=== PATIENT | male | born 1955 | race Caucasian/White ===

== ENCOUNTER 2018-10-08 10:44 | Emergency (ER) | payer OTHER ==
[~2018-10-08] VITALS: Ht 172.7 cm; Wt 95.3 kg
[2018-10-08] MEDS ORDERED: LISINOPRIL10 MG PO (10:57)
[2018-10-08] MEDS ORDERED: LIDODERM1 EACH TOP (10:58)
[2018-10-08] MEDS ORDERED: FLEXERIL PO (10:58)
[2018-10-08] MEDS ORDERED: IRON325 PO (10:58)
[2018-10-08] MEDS ORDERED: PROTONIX 20 MG20 M1 PO (10:58)
[2018-10-08] MEDS ORDERED: PERCOCET PO (12:13)
[2018-10-08] MEDS ORDERED: NAPROSYN500 MG PO (12:16)
[2018-10-08] MEDS ORDERED: VALIUM5 MG PO (12:16)
[2018-10-08] MEDS ORDERED: PERCOCET 5-3251 EACH PO (12:50)
[2018-10-08] MEDS ORDERED: OXYCODONE HCL 55 MG PO (12:53)
[2018-10-08 12:57] VITALS: BP 129/74
== END 2018-10-08 12:57 | disposition home or self-care (01) ==
LOC: M.ERS 10:44
DX: S22.42XA Multiple fractures of ribs, left side, initial encounter for closed fracture (principal); F17.200 Nicotine dependence, unspecified, uncomplicated; I10 Essential (primary) hypertension; K21.9 Gastro-esophageal reflux disease without esophagitis; M51.36 Other intervertebral disc degeneration, lumbar region; Z90.49 Acquired absence of other specified parts of digestive tract; Z90.89 Acquired absence of other organs; W00.0XXA Fall on same level due to ice and snow, initial encounter; Y92.89 Other specified places as the place of occurrence of the external cause; Y93.89 Activity, other specified; Y99.8 Other external cause status

== ENCOUNTER 2019-04-05 16:37 | Inpatient (IN) | payer OTHER ==
[2019-04-05] VITALS (7 sets, daily range): BP systolic 84–128; BP diastolic 47–68
[~2019-04-05] VITALS: Ht 172.7 cm; Wt 102.5 kg
[~2019-04-05 16:37] MED LIST: FLEXERIL PO; IRON325 PO; LIDODERM1 EACH TOP; LISINOPRIL10 MG PO; NAPROSYN500 MG PO; OXYCODONE HCL 55 MG PO; PERCOCET 5-3251 EACH PO; PERCOCET PO; PROTONIX 20 MG20 M1 PO; VALIUM5 MG PO
[2019-04-05 17:02] LABS: ABSOLUTE BASOPHILS 0.2 thou/uL (0.0-0.2); ABSOLUTE EOSINOPHILS 0.3 thou/uL (0.0-0.7); ABSOLUTE LYMPHOCYTES 4.5 thou/uL (0.8-5.3); ABSOLUTE MONOCYTES 0.7 thou/uL (0.0-1.2); BASOPHILS 1.1 %; HEMATOCRIT 34.4 % (42.0-52.0); HEMOGLOBIN 11.8 gm/dL (14.0-18.0); LYMPHOCYTES 30.7 %; MCH 33.8 pg (26.0-34.0); MCHC 34.4 g/dL (28.0-37.0); MCV 98.3 fL (80.0-100.0); MPV 7.2 fl. (7.2-11.1); NUCLEATED RBCS 0 /100WBC; PLATELET COUNT* 154 thou/uL (150-400); POLYS 61.2 %; RDW-CV 14.1 % (10.5-14.5); WBC 14.6 thou/uL (4.0-11.0)
[2019-04-05 17:09] LABS: ANION GAP 12 mmol/L (7-16); BUN 20 mg/dL (7-18); CALCIUM 8.8 mg/dL (8.5-10.1); CHLORIDE 109 mmol/L (98-107); CO2 20 mmol/L (21-32); CREATININE 1.6 mg/dL (0.6-1.3); GLUCOSE 189 mg/dL (70-99); POTASSIUM 5.7 mmol/L (3.5-5.1); SODIUM 141 mmol/L (136-145)
[2019-04-05 17:12] LABS: APTT 25.7 Seconds (25.0-31.3); INR 1.3; PROTIME 13.6 Seconds (9.20-11.50)
[2019-04-05 17:15] LABS: ACETAMINOPHEN < 2 ug/mL (10-30); ALCOHOL < 10 mg/dL (<10); SALICYLATE < 2.8 mg/dL (2.8-20.0)
[2019-04-05 17:21] LABS: ALBUMIN 2.6 g/dL (3.4-5.0); ALKALINE PHOSPHATASE 66 U/L (46-116); LIPASE 184 U/L (73-393); SGOT 108 U/L (15-37); SGPT 80 U/L (30-65); TOTAL BILIRUBIN 1.5 mg/dL (<0.1-1.0); TOTAL PROTEIN 5.9 g/dL (6.4-8.2); TROPONIN-I LEVEL <0.06 ng/mL (<0.06)
[2019-04-05 18:35] LABS: ABSOLUTE BASOPHILS 0.1 thou/uL (0.0-0.2); ABSOLUTE EOSINOPHILS 0.1 thou/uL (0.0-0.7); ABSOLUTE LYMPHOCYTES 1.9 thou/uL (0.8-5.3); ABSOLUTE MONOCYTES 0.8 thou/uL (0.0-1.2); ABSOLUTE NEUTROPHILS 10.2 thou/uL (1.6-8.1); BASOPHILS 1.1 %; EOSINOPHILS 0.9 %; HEMATOCRIT 27.9 % (42.0-52.0); HEMOGLOBIN 9.5 gm/dL (14.0-18.0); LYMPHOCYTES 14.3 %; MCH 33.7 pg (26.0-34.0); MCHC 33.9 g/dL (28.0-37.0); MCV 99.2 fL (80.0-100.0); MONOCYTES 6.1 %; NUCLEATED RBCS 0 /100WBC; PLATELET COUNT* 136 thou/uL (150-400); POLYS 77.6 %; RBC 2.81 mil/uL (4.50-6.00); WBC 13.2 thou/uL (4.0-11.0)
[2019-04-05 20:12] LABS: URINE BILIRUBIN NEGATIVE (Negative); URINE BLOOD 3+ (Negative); URINE CLARITY CLEAR; URINE COLOR YELLOW; URINE GLUCOSE-RANDOM NEGATIVE (Negative); URINE KETONES NEGATIVE (Negative); URINE LEUKOCYTES-REFLEX NEGATIVE (Negative); URINE NITRITE-REFLEX NEGATIVE (Negative); URINE PROTEIN TRACE (Negative); URINE SPECIFIC GRAVITY 1.025 (1.005-1.030); URINE UROBILINOGEN 0.2 E.U./dl (0.2-1.0)
[2019-04-05 20:20] LABS: AMP/METHAMP Negative (Negative); BARBITURATES Negative (Negative); BENZODIAZEPINES Negative (Negative); COCAINE Negative (Negative); METHADONE Negative (Negative); OPIATES POSITIVE (Negative); PCP Negative (Negative); THC POSITIVE (Negative)
[2019-04-05 20:25] LABS: SQUAMOUS 4-10 Moderate /LPF (0-3)
[2019-04-05 20:26] LABS: BACTERIA-REFLEX None Seen /HPF (None Seen); CRYSTALS None Seen /LPF (None Seen); HYALINE CASTS 0-3 Few /LPF (None Seen); URINE RBC 3-10 Few /HPF (0-2); URINE WBC-REFLEX None Seen /HPF (0-5)
[2019-04-05 21:39] LABS: HEMATOCRIT 28.3 % (42.0-52.0); HEMOGLOBIN 9.6 gm/dL (14.0-18.0)
[2019-04-06] VITALS (115 sets, daily range): BP systolic 30–270; BP diastolic 14–153
[2019-04-06 05:29] LABS: ALBUMIN 2.3 g/dL (3.4-5.0); CALCIUM 7.4 mg/dL (8.5-10.1); CREATININE 1.4 mg/dL (0.6-1.3); MAGNESIUM 1.4 mg/dL (1.8-2.4); PHOSPHORUS* 3.1 mg/dL (2.5-4.9); TOTAL BILIRUBIN 2.2 mg/dL (<0.1-1.0); TOTAL PROTEIN 5.2 g/dL (6.4-8.2)
[2019-04-06 05:34] LABS: ABSOLUTE BASOPHILS 0.1 thou/uL (0.0-0.2); ABSOLUTE LYMPHOCYTES 1.7 thou/uL (0.8-5.3); ABSOLUTE MONOCYTES 0.9 thou/uL (0.0-1.2); ABSOLUTE NEUTROPHILS 9.1 thou/uL (1.6-8.1); BASOPHILS 0.8 %; EOSINOPHILS 0.1 %; HEMATOCRIT 28.8 % (42.0-52.0); LYMPHOCYTES 14.5 %; MCH 33.7 pg (26.0-34.0); MCHC 34.6 g/dL (28.0-37.0); MCV 97.5 fL (80.0-100.0); MONOCYTES 7.6 %; MPV 7.3 fl. (7.2-11.1); NUCLEATED RBCS 0 /100WBC; PLATELET COUNT* 92 thou/uL (150-400); RBC 2.96 mil/uL (4.50-6.00); RDW-CV 14.9 % (10.5-14.5); WBC 11.8 thou/uL (4.0-11.0)
[2019-04-06 05:40] LABS: POTASSIUM 6.4 mmol/L (3.5-5.1)
[2019-04-06 06:09] LABS: HEMATOCRIT 29.2 % (42.0-52.0); HEMOGLOBIN 10.3 gm/dL (14.0-18.0)
--- NOTE | 2019-04-06 07:16 | NUR ---
PATIENT TO ICU ROOM 7 AT 2100 ACCOMPANIED BY RN AND ON LEVOPHED GTT, LEVOPHED WAS TITRATED OFF AROUND 0000. PATIENT ON RA, DENIES SOB. BLACK, TARRY STOOL WITH CLOTS X4 THROUGH THE NIGHT. CONSTANT DARK RED EMESIS THROUGH THE NIGHT WELL, EMESIS MORE RED IN COLOR THIS AM. PATIENT VERY AGITATED ABOUT THE FACT THAT HE CAN'T HAVE WATER. KEEPS ASKING FOR WATER AND STATES "I WOULD FEEL MUCH BETTER IF I CAN DRINK WATER". PATIENT ALSO REPORTS HE WILL LEAVE AMA, DRINK WATER AND CHECK BACK IN. PATIENT EDUCATED ON RISKS OF DOING THAT AND ON HIS CRITICAL STATUS AT THE MOMENT. MOUTH SWABS OFFERED THROUGH THE NIGHT WITH MINIMAL RELIEF. PATIENT NOT TO BE PUT ON ELECTROLYTE REPLACEMENT THERAPY PER PROVIDER. AM EKG SHOWS SINUS TACHYCARDIA, NO CHANGE FROM WHEN HE FIRST CAME TO UNIT. PATIENT RECEIVED TWO DOSES OF FENTANYL AND ZOFRAN WITH SOME RELIEF. 1200CC DARK YELLOW URINE FROM LOCKHART. ABLE TO TURN SELF IN BED.
[2019-04-06 07:38] LABS: CALCIUM 7.3 mg/dL (8.5-10.1); CREATININE 1.6 mg/dL (0.6-1.3); POTASSIUM 6.1 mmol/L (3.5-5.1)
--- NOTE | 2019-04-06 08:40 | NUR ---
PT C/O OF ABDOMINAL PAIN 10/10. RESTLESS, IRRITABLE. CRICITAL POTASSIUM AND LACTIC. DR NOTIFIED. RECEIVED ORDER FOR SURGERY CONSULT, STAT KUB, NS BOLUS, AND INCREASE IN DOSAGE AND FREQUENCY OF PAIN MEDICATION. AFTER IV FENTANYL 100 MCG PAIN RATED AT 5/10.
--- NOTE | 2019-04-06 08:50 | NUR ---
PT ATTEMPTING TO GET OUT OF BED. PT STOOD UP AND ATTEMPTED TO SIT IN BSC, THEN SAT BACK IN BED. PT PULLED OUT LOCKHART CATHETER.
[2019-04-06 09:21] LABS: HEMATOCRIT 22.4 % (42.0-52.0)
[2019-04-06 09:23] LABS: HEMOGLOBIN 6.9 gm/dL (14.0-18.0)
--- NOTE | 2019-04-06 10:06 | EKG ---
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
--- NOTE | 2019-04-06 11:00 | NUR ---
AROUND 0920 PT APPEARED TO BE SLEEPING. DR IN TO SEE PT. ATTEMPTED TO WAKE UP PATIENT. EYES OPEN. PT NOT TRACKING. PT NOT SPEAKING. PT UNRESPONSIVE. PT HAS A PULSE. TRACING SR/ST ON MONITOR. DURING THIS TIME, UNABLE TO GET A PULSE OXYGEN. PT HAD REPORTED NOT BEING ABLE TO BREATH, OXYGEN SATURATION >92% AND 2L NC OXYGEN PLACED FOR COMFORT. THIS RN UNABLE TO FEEL PULSE. DR JIMENEZ ABLE TO FEEL A PULSE. SYSTOLIC BP 90'S. CONTINUED TO FEEL FOR PULSE, PT NOT RESPONDING, UNABLE TO GET OXYGEN READING. ASKED DR IF WOULD LIKE TO CODE PATIENT, RECEIVED ORDER TO DO RAPID RESPONSE. THEN CODE CALLED AROUND 0940/0944. REFER TO CHARTING.
[2019-04-06 11:17] LABS: BE -31.4 mmol/L (-2 to +3)
[2019-04-06 11:20] LABS: pH < 6.702 (7.340-7.450)
[2019-04-06 11:21] LABS: PCO2 56.5 mmHg (35.0-45.0); PO2 201.1 mmHg (75.0-100.0)
[2019-04-06 11:28] LABS: CALCIUM 7.9 mg/dL (8.5-10.1); CREATININE 1.7 mg/dL (0.6-1.3); MAGNESIUM 1.8 mg/dL (1.8-2.4)
[2019-04-06 11:33] LABS: HEMATOCRIT 19.7 % (42.0-52.0); HEMOGLOBIN 5.8 gm/dL (14.0-18.0)
--- NOTE | 2019-04-06 12:04 | NUR ---
PUPILS FIXED. DR JIMENEZ NOTIFIED. NO ORDERS RECEIEVED AT THIS TIME.
[2019-04-06 12:09] LABS: PROTIME > 210.1 Seconds (9.20-11.50)
[2019-04-06 12:11] LABS: INR > 18.0
[2019-04-06 12:12] LABS: APTT > 198.4 Seconds (25.0-31.3); FIBRINOGEN < 50 mg/dL (200-340)
[2019-04-06 13:17] LABS: HEMATOCRIT 29.1 % (42.0-52.0); MCH 29.7 pg (26.0-34.0); MCHC 30.4 g/dL (28.0-37.0); MCV 97.7 fL (80.0-100.0); MPV 9.5 fl. (7.2-11.1); NUCLEATED RBCS 1 /100WBC; PLATELET COUNT* 73 thou/uL (150-400); RBC 2.98 mil/uL (4.50-6.00); RDW-CV 16.4 % (10.5-14.5); WBC 15.7 thou/uL (4.0-11.0)
[2019-04-06 13:18] LABS: HEMOGLOBIN 8.9 gm/dL (14.0-18.0)
[2019-04-06 13:18] LABS: BE -27.2 mmol/L (-2 to +3)
[2019-04-06 13:25] LABS: CALCIUM 8.8 mg/dL (8.5-10.1); CREATININE 1.9 mg/dL (0.6-1.3)
[2019-04-06 13:29] LABS: PCO2 100.6 mmHg (35.0-45.0); pH < 6.702 (7.340-7.450)
[2019-04-06 13:31] LABS: POTASSIUM 7.8 mmol/L (3.5-5.1)
[2019-04-06 13:47] LABS: ABSOLUTE EOSINOPHILS 0.3 thou/uL (0.0-0.7); ABSOLUTE NEUTROPHILS 10.4 thou/uL (1.6-8.1); ATYPICAL LYMPHS 2 %; METAMYELOCYTES 8 %; PLATELET ESTIMATE DECREASED
[2019-04-06 13:52] LABS: HEMATOCRIT 23.8 % (42.0-52.0); HEMOGLOBIN 7.3 gm/dL (14.0-18.0)
--- NOTE | 2019-04-06 14:00 | NUR ---
PT INTUBATED DURING CODE BLUE AT 0945. AFTER THIS CODE PT REQUIRED COMPLETE BED CHANGE DUE TO BED SATURATED IN BLOOD. PT ALSO HAD BLOOD SUCTIONED FROM ORAL CAVITY. ARTERIAL LINE PLACED BY ANESTHEISIA. DURING 939 CODE BLUE. PT RECEIVED EGD. WHILE GETTING READY FOR EGD, BP SB HEART RATE IN 30'S. ATROPINE PUSHED. REFER TO EGD CHARTING. PT CODED FOR PEA AROUND 1230. DR IN ROOM. AFTER CODE RECEIVED ORDER FROM DR JIMENEZ THAT PT IS NOW A DNR PER FAMILY.
[2019-04-06 14:30] LABS: PROTIME 19.7 Seconds (9.20-11.50)
[2019-04-06 14:49] LABS: INR > 18.0; PROTIME > 210.1 Seconds (9.20-11.50)
[2019-04-06 14:50] LABS: APTT > 198.4 Seconds (25.0-31.3); FIBRINOGEN < 50 mg/dL (200-340)
[2019-04-06 14:51] LABS: POTASSIUM 7.8 mmol/L (3.5-5.1)
[2019-04-06 14:52] LABS: APTT 175.3 Seconds (25.0-31.3)
--- NOTE | 2019-04-06 15:18 | EKG ---
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 04/06/19 1518 0628 0628 Beltran Cope MD, [facility] /EPI
--- NOTE | 2019-04-06 15:18 | EKG ---
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[place] : 1955 Requested By: Jessenia Elias Order Number: [id number] Sonali MD: Beltran Cope Measurements Intervals [place] Rate: 101 P: 50 DC: 169 QRS: -1 QRSD: 148 T: 124 QT: 406 QTc: 527 Interpretive Statements Sinus tachycardia Left bundle branch block Compared to ECG 04/05/2019 16:45:15 Left bundle-branch block now present Electronically Signed On 04-06-2019 15:17:47 CDT by Beltran Cope [email or web address] <ELECTRONICALLY SIGNED> By: Beltran Cope MD, [facility] 04/06/19 1517 12 12 Beltran Cope MD, [facility] /EPI
[2019-04-06 15:30] LABS: BE -28.4 mmol/L (-2 to +3)
--- NOTE | 2019-04-06 15:30 | NUR ---
PT HAS NOT HAD ANY URINE OUTPUT. DURING 929 CODE BLUE PT RECEIVED FLUIDS, REFER TO PAPER CHART.
[2019-04-06 15:41] LABS: PCO2 125.8 mmHg (35.0-45.0)
--- NOTE | 2019-04-06 17:00 | NUR ---
AROUND 1515/[address] JIMENEZ EXTERNALLY PACE PT WITH CRASH CART. HEART RATE 30'S. CARDIOLOGY ASSESSED PT FOR TEMPORARY PACEMAKER. DR FABIAN SPOKE WITH FAMILY AND WITH DR JIMENEZ. PT WILL NOT BE RECEIVING A TEMPORARY PACEMAKER. PER DR JIMENEZ CONTINUE EXTERNALLY PACING PATIENT. USING DOPPLER , ABLE TO HEAR LEFT RADIAL PULSE. DOPPLER USED ABOUT 4 TIMES TO ASSESS HEART BEAT UNABLE TO AUSCULTE PT LUNGS SOUND TOO COARSE. NOTIFIED DR THAT EKG DOES NOT MATCH WHAT IS HEARD FROM DOPPLER. PT DISCUSSING COMFORT CARE. AT THIS TIME PT DOES NOT HAVE A BP. UNABLE TO DOPPLER PULSE ON LEFT RADIAL ARM. RECEIVED ORDER THAT 2 NURSES CAN PRONOUCE . DOPPLER USED ON LEFT RADIAL WRIST FOR 1 MINUTE EACH BY 2 RN'S AND NO HEART BEAT HEARD BY EITHER NURSE. 2 RN'S LISTENED TO HEART ON CHEST FOR 1 MINUTE EACH, NO HEART BEAT HEARD BY EITHER NURSE. TIME OF 164.
--- NOTE | 2019-04-06 20:19 | NUR ---
FAMILY REQUESTING AUTOPSY. [facility] CALLED AND NOT A CANDADTE. FAMILY REFERRED TO [facility]. FAMILY HAS CHOSED A HOME. PT TO BE CREAMATED. FAMILY GIVEN NUMBER FOR [facility] AND AWAITING UPDATE.
--- NOTE | 2019-04-06 21:24 | NUR ---
[facility] CALLED, NOTIFIED THEY TALKED TO PT. SON AND HE NOTIFIED THEM OF PT. BEING HEP C POSITIVE. PT. IS NOT A CANDIDATE FOR TISSUE/EYE DONATION. [facility] CALLED AND NOTIFIED, ETA [phone]. WILL RELEASE BODY TO [facility].
--- NOTE | 2019-04-06 21:50 | NUR ---
PT. BODY RELEASED TO [facility] AT 2150. 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 NO PERSONAL BELONGINGS.
--- NOTE | 2019-04-07 08:28 | CON ---
[address] [address] CONSULTATION Name: MANUELA TORRES Room: [address] IN ..#: [id number] Admission: 04/05/19 Attend Phys: Nilton Zepeda MD Discharge: 04/06/19 Date of : 59 Report #: [id number] THIS REPORT FOR: //name// CC: KENNETH physician/PCP Nilton Zepeda DATE OF SERVICE: 04/06/2019 HISTORY OF PRESENT ILLNESS: The patient is a 63-year-old white male who I have seen in the ICU today after he had respiratory insufficiency. The history is obtained from the chart. No family members available at this time and the patient is comatose. The patient apparently came to the Emergency Room yesterday. He has a history of liver cirrhosis. He has had previous gastrointestinal bleed. He came to the Emergency Room yesterday complaining of throwing up blood. He was admitted to the ICU. This morning, the patient was apparently irritated and received some narcotics. He then had increasing shortness of breath. No blood pressure could be felt and the patient was less responsive. A code blue was initiated. CPR was started. The patient received epinephrine. He is currently being externally paced. PAST MEDICAL HISTORY: Significant for tonsillectomy, appendectomy. MEDICATIONS: Consist of lisinopril, Protonix, Flexeril, and oxycodone. ALLERGIES: No known drug allergies. SOCIAL HISTORY: He smokes half a pack a day. REVIEW OF SYSTEMS: There is no history of stroke. There is no history of cancer. No history of psychosis. PHYSICAL EXAMINATION: GENERAL: Revealed a middle-aged male lying in bed. He was unresponsive. VITAL SIGNS: Blood pressure is only 90, pulse is 40. HEENT: He is anicteric. Mucous membranes are moist. CHEST: Clear to auscultation. CARDIOVASCULAR: Regular, bradycardia. ABDOMEN: Soft. EXTREMITIES: Had no pitting edema. LABORATORY DATA: ECG shows sinus rhythm. His lab work, sodium 152, potassium is 7.8, creatinine is 1.9, glucose 253, SGOT 307, bilirubin 2.2, alkaline phosphatase 48, SGPT 190, albumin 2.3 mm. Ammonia 131. Troponin 0.06. TSH 2.2. White blood cell count 15.7, hemoglobin 7.3, and platelet count 73,000. [place] [address] CONSULTATION Name: MANUELA TORRES Room: [address]#: [id number] Admission: 04/05/19 Attend Phys: Nilton Zepeda MD Discharge: 04/06/19 Date of : 59 Report #: [id number] X-RAYS: The patient had a CT scan of the abdomen done in the Emergency Room yesterday that showed atelectasis of the lung, nodular liver suggestive of cirrhosis, splenomegaly. CT scan of the chest using a PE protocol was done yesterday that showed lung nodule, normal-appearing esophagus. His chest x-ray showed normal heart size, clear lung pan. IMPRESSION AND RECOMMENDATIONS: 1. Bradycardia, suspect secondary to hyperkalemia, consider temporary pacer until hyperkalemia is corrected. 2. Hyperkalemia. 3. Renal insufficiency. 4. Cirrhosis. 5. Anemia. 6. Upper gastrointestinal bleed, possible varices. 7. Respiratory failure. I would be concerned about aspiration. <ELECTRONICALLY SIGNED> By: Beltran Cope MD, [facility] 04/07/19 0828 1426 [id number] Cope MD, FACC /nt
[2019-04-07 12:56] LABS: pH < 6.702 (7.340-7.450)
--- NOTE | 2019-04-07 15:48 | CON ---
[address] [address] CONSULTATION Name: MANUELA TORRES Room: [address] IN .R.#: [id number] Admission: 04/05/19 Attend Phys: Nilton Zepeda MD Discharge: 04/06/19 Date of : 59 Report #: [id number] THIS REPORT FOR: //name// CC: KENNETH physician/PCP Nilton Zepeda DICTATED BY: Agata Richards [facility] DATE OF SERVICE: 04/06/2019 The patient does not have a PCP. Please note at the time of this dictation, the patient was seen and physically examined by myself. REASON FOR CONSULTATION: Upper GI bleed. HISTORY OF PRESENT ILLNESS: This is a 63-year-old male who presented to the Emergency Room with hematemesis that started about an hour prior to his arrival. He states that he was vomiting over "a gallon of blood" that was bright red blood and continued that at the time of the ER. He has had several black [employer] in conjunction with that. He did tell them that he is not followed by any GI specialist and that 2 years ago he did have an esophageal tear for similar reasons. The patient does admit to drinking 3-4 beers a day as well. He denies taking any NSAID use or being on any anticoagulation at this time. ALLERGIES: No known drug allergies. MEDICATIONS FROM HOME: Lisinopril, Protonix, Flexeril, iron and Percocet. PAST MEDICAL HISTORY: Cirrhosis of the liver, GI bleed, history of rib fractures. PAST SURGICAL HISTORY: Negative. FAMILY HISTORY: Noncontributory. SOCIAL HISTORY: He drinks 3-4 beers a day and has for many years. REVIEW OF SYSTEMS: Twelve-point review of systems is essentially negative except what is mentioned in the HPI. PHYSICAL EXAMINATION: VITAL SIGNS: Temperature 36.7, pulse 116, respirations 23, blood pressure 124/85. HEART: Regular rate and rhythm, [place] [address] CONSULTATION Name: MANUELA TORRES Room: [address]#: [id number] Admission: 04/05/19 Attend Phys: Nilton Zepeda MD Discharge: 04/06/19 Date of : 59 Report #: [id number] NEUROLOGIC: The patient is very combative and thrashing around complaining that he hurts all over. However, when you call his name he does answer questions. LUNGS: Diminished but clear. ABDOMEN: Soft, positive bowel sounds in all 4 quadrants with some distention noted. Positive for black stools. LABORATORY DATA: Hemoglobin was 10 on admission, this morning is 6.9; white count is 11.8; and platelets are 92. Iron 194, TIBC 198, percentage sat was 98. B12 is ____. GFR is 44, potassium was 6.1. PT is 13.6, INR is 1.3, BUN is 34 and creatinine is 1.6. Ammonia was 131 this a.m. Total bilirubin 2.2, alkaline phosphatase 48, ALT 190, AST 307. CT showed cirrhosis of the liver with some cholecystitis noted. Also, a nodule noted in the right hepatic lobe at 2.4 x 1.8 cm. IMPRESSION: 1. Upper gastrointestinal bleed, active. 2. Nausea and vomiting. 3. Melanotic stool. 4. Hepatic encephalopathy, elevated ammonia level. 5. Elevated liver function tests. 6. Thrombocytopenia. 7. Cirrhosis of the liver, likely related to alcohol. 8. Hypercalcemia. 9. Alcohol abuse. 10. 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 PLAN: 1. EGD. 2. We will transfuse 2 units to keep his hemoglobin greater than 7. 3. Continue his octreotide and Protonix drip. 4. Need to treat his hyperkalemia. 5. Likely we will do Kayexalate once his GI bleed is under further control. 6. Further recommendations to be made after Dr. Hernandez sees the patient and does the procedure. Thank you for allowing us to participate in this patient's care. Please do not hesitate to call with any questions in regard to this consult. Agree with above assessment and plan by Agata Richards <ELECTRONICALLY SIGNED> By: Shashank Hernandez MD 04/07/19 1548 0945 [id number] Hernandez MD /nt
== END 2019-04-06 16:44 | DRG 441 ==
LOC: M.ERS 16:37 → M.TBA-ER 17:32 → M.ICU 17:32 → M.TBA-ER 18:32 → M.ICU 19:51
PROVIDERS: Family Medicine; Internal Medicine Gastroenterology; Nurse Practitioner Family; ADMIT Family Medicine
PROC: 02HV33Z Insertion of Infusion Device into Superior Vena Cava, Percutaneous Approach (ICD-10-PCS; principal; 2019-04-05)
PROC: 30233N1 Transfusion of Nonautologous Red Blood Cells into Peripheral Vein, Percutaneous Approach (ICD-10-PCS; principal; 2019-04-05)
PROC: 05HY33Z Insertion of Infusion Device into Upper Vein, Percutaneous Approach (ICD-10-PCS; principal; 2019-04-05)
PROC: 0BH17EZ Insertion of Endotracheal Airway into Trachea, Via Natural or Artificial Opening (ICD-10-PCS; 2019-04-06)
PROC: 30233K1 Transfusion of Nonautologous Frozen Plasma into Peripheral Vein, Percutaneous Approach (ICD-10-PCS; 2019-04-06)
PROC: 5A12012 Performance of Cardiac Output, Single, Manual (ICD-10-PCS; 2019-04-06)
PROC: 30233M1 Transfusion of Nonautologous Plasma Cryoprecipitate into Peripheral Vein, Percutaneous Approach (ICD-10-PCS; 2019-04-06)
PROC: 06L38CZ Occlusion of Esophageal Vein with Extraluminal Device, Via Natural or Artificial Opening Endoscopic (ICD-10-PCS; 2019-04-06)
PROC: 30233R1 Transfusion of Nonautologous Platelets into Peripheral Vein, Percutaneous Approach (ICD-10-PCS; 2019-04-06)
PROC: 5A1935Z Respiratory Ventilation, Less than 24 Consecutive Hours (ICD-10-PCS; 2019-04-06)
DX: K72.90 Hepatic failure, unspecified without coma (principal); J96.90 Respiratory failure, unspecified, unspecified whether with hypoxia or hypercapnia; D65 Disseminated intravascular coagulation [defibrination syndrome]; I85.11 Secondary esophageal varices with bleeding; K92.1 Melena; N17.9 Acute kidney failure, unspecified; E87.2 Acidosis; K21.9 Gastro-esophageal reflux disease without esophagitis; K74.60 Unspecified cirrhosis of liver; M47.896 Other spondylosis, lumbar region; F17.210 Nicotine dependence, cigarettes, uncomplicated; I95.9 Hypotension, unspecified; R00.0 Tachycardia, unspecified; I44.7 Left bundle-branch block, unspecified; E83.52 Hypercalcemia; F10.10 Alcohol abuse, uncomplicated; B19.20 Unspecified viral hepatitis C without hepatic coma; G89.29 Other chronic pain; R57.8 Other shock; E87.5 Hyperkalemia; R00.1 Bradycardia, unspecified; D64.9 Anemia, unspecified; Z66 Do not resuscitate; I46.9 Cardiac arrest, cause unspecified; I12.9 Hypertensive chronic kidney disease with stage 1 through stage 4 chronic kidney disease, or unspecified chronic kidney disease; N18.3 Chronic kidney disease, stage 3 (moderate); Z90.49 Acquired absence of other specified parts of digestive tract; Z90.89 Acquired absence of other organs; Z79.899 Other long term (current) drug therapy